=== PATIENT | female | born 1965 | race Caucasian/White ===

== ENCOUNTER → 2018-10-23 | Outpatient (CLI) | payer BC ==
--- NOTE | 2018-10-23 14:08 | RAD ---
EXAM: XR Pelvis, 1 or 2 Views CLINICAL HISTORY: PELVIS SPRAIN TECHNIQUE: Frontal and frog-leg lateral views of the pelvis. COMPARISON: No relevant prior studies available. FINDINGS: Limitations: None. Bones/joints: Unremarkable. No acute fracture. No dislocation. Soft tissues: Unremarkable. IMPRESSION: No acute findings. Electronically signed by: Lyndsey Olson MD 10/23/2018 2:06 PM CDT
== END ==
LOC: LAB.O 12:21
PROVIDERS: ATTEND Nurse Practitioner Family
DX: S33.8XXA Sprain of other parts of lumbar spine and pelvis, initial encounter (principal); R10.84 Generalized abdominal pain

== ENCOUNTER → 2019-03-20 | Outpatient (CLI) | payer BC ==
--- NOTE | 2019-03-20 16:14 | RAD ---
EXAM DESCRIPTION: Chest,2 Views CLINICAL HISTORY: 53 years Female COUGH COMPARISON: None. FINDINGS: The cardiomediastinal silhouette appears unremarkable. No consolidating infiltrates or pleural effusions. No pneumothorax. IMPRESSION: No acute abnormality is identified. Electronically signed by: Evangelina Méndez MD 03/20/2019 4:13 PM [facility]
== END ==
LOC: LAB.O 15:36
PROVIDERS: ATTEND Physician Assistant
DX: R05 Cough (principal)

== ENCOUNTER → 2020-01-10 | Outpatient (CLI) | payer BC | LOC: GMAF 15:09 | PROVIDERS: ATTEND Nurse Practitioner Family | DX: R30.0 Dysuria (principal) ==